=== PATIENT | female | born 1945 ===

== ENCOUNTER 2019-02-05 10:26 | Outpatient (CLI) | payer MEDICARE | END 2019-02-05 10:27 | disposition home or self-care (01) | PROVIDERS: ATTEND Otolaryngology Plastic Surgery within the Head & Neck | DX: R13.10 Dysphagia, unspecified (principal); R49.0 Dysphonia; J38.01 Paralysis of vocal cords and larynx, unilateral | CPT/HCPCS: 74230 ==